=== PATIENT | female | born 1965 | race Caucasian/White ===

== ENCOUNTER 2016-06-26 08:38 | Emergency (ER) | payer SELFPAY ==
[~2016-06-26] VITALS: Ht 154.9 cm; Wt 49.0 kg
[2016-06-26] MEDS ORDERED: TRAM50TA2 PO (08:49)
[2016-06-26] MEDS ORDERED: TOPI100T11 PO (08:50)
[2016-06-26] MEDS ORDERED: TRAZ-144 PO (08:51)
[2016-06-26] MEDS ORDERED: DIPH25CA83 PO (08:52)
[2016-06-26] MEDS ORDERED: METOCLOPRAMIDE HCL 10 MG/2 ML VIAL IV ONE (09:15)
[2016-06-26] MEDS ORDERED: KETOROLAC TROMETHAMINE 30 MG INJ IVP ONE (09:15)
[2016-06-26] MEDS ORDERED: diphenhydrAMINE 50 MG/1 ML VIAL IV ONE (09:15)
[2016-06-26] MEDS ORDERED: methylPREDNISolone SOD SUCC 40 MG/ML VIAL IV ONE (09:15)
[2016-06-26] MEDS ORDERED: LORAZEPAM 2 MG/1 ML VIAL IV ONE (09:15)
[2016-06-26] MEDS ORDERED: IV NORMAL SALINE 1000 ML BAG IV ONE (09:15)
[2016-06-26] MEDS ORDERED: methylPREDNISolone SOD SUCC 40 MG/ML VIAL ONE ×2 (09:25→09:40)
[2016-06-26] MEDS ORDERED: LORAZEPAM 2 MG/1 ML VIAL ONE (09:26)
[2016-06-26] MEDS ORDERED: diphenhydrAMINE 50 MG/1 ML VIAL ONE (09:27)
[2016-06-26] MEDS ORDERED: KETOROLAC TROMETHAMINE 30 MG INJ ONE (09:27)
--- NOTE | 2016-06-26 09:39 | NUR ---
PT IS IN ROOM #2A. DR RAMIRES EVALUATED THE PT.
[2016-06-26] MEDS ORDERED: METOCLOPRAMIDE HCL 10 MG/2 ML VIAL ONE (09:40)
--- NOTE | 2016-06-26 11:01 | NUR ---
PT WAS D/C TO HOME. D/C INSTRUCTIONS GIVEN TO THE PT. NO S/S OF ACUTE DISTRESS AT THIS TIME.
[2016-06-26 11:13] VITALS: BP 125/68
== END 2016-06-26 11:14 | disposition home or self-care (01) ==
LOC: ER 08:38
DX: G43.909 Migraine, unspecified, not intractable, without status migrainosus (principal); Z88.6 Allergy status to analgesic agent; Z88.1 Allergy status to other antibiotic agents; Z88.8 Allergy status to other drugs, medicaments and biological substances
CPT/HCPCS: 96361; 96374; 96375; 99285; A4663; J1200; J1885; J2060; J2765; J2920 ×2; J7030